=== PATIENT | female | born 1995 | race African-American/Black ===

== ENCOUNTER 2019-03-05 13:36 | Emergency (ER) | payer MEDICAID ==
[~2019-03-05] VITALS: Ht 152.4 cm; Wt 108.0 kg
[2019-03-05 13:57] VITALS: BP 128/50
== END 2019-03-05 20:18 | disposition left against medical advice (07) ==
LOC: ER 13:36
DX: O26.892 Other specified pregnancy related conditions, second trimester (principal); Z3A.19 19 weeks gestation of pregnancy; Z53.21 Procedure and treatment not carried out due to patient leaving prior to being seen by health care provider

== ENCOUNTER 2020-07-15 13:08 | Emergency (ER) | payer MEDICAID ==
[~2020-07-15] VITALS: Ht 162.6 cm; Wt 107.5 kg
[2020-07-15] MEDS ORDERED: ACETAMINOPHEN 325MG TABLET PO ONE (13:45)
[2020-07-15] MEDS ORDERED: SODIUM CHLORIDE 0.9% 1,000 ML IV ONE (13:45)
[2020-07-15] MEDS ORDERED: ONDANSETRON HCL 4MG/2ML INJ IV ONE (14:15)
[2020-07-15 14:58] LABS: BASOPHILS % 0.3 % (0.0-2.0); EOSINOPHILS % 1.1 % (0.0-5.0); HEMATOCRIT. 32.5 % (36.0-48.0); HEMOGLOBIN. 10.3 g/dL (12.0-16.0); LYMPHOCYTES % 14.1 % (20.0-50.0); MEAN CORPUSCULAR HEMOGLOBIN 21.9 pg (28.0-32.0); MEAN CORPUSCULAR VOLUME 69.1 fL (81.0-99.0); MEAN PLATELET VOLUME 7.2 fl (7.4-10.4); MONOCYTES % 4.3 % (2.0-8.0); NEUTROPHILS % 80.2 % (40.0-76.0); PLATELET 398 x1000/uL (130-400); RED CELL DISTRIBUTION WIDTH 18.8 % (11.6-14.6)
[2020-07-15 15:02] LABS: CHLORIDE 110 mEq/L (98-107)
[2020-07-15 15:44] LABS: PLATELET ESTIMATE NORMAL
[2020-07-15 16:02] LABS: B-HCG QUANTITATIVE 20 mIU/mL (<3)
[2020-07-15] MEDS ORDERED: ACET-2708 MT (16:40)
[2020-07-15 16:49] VITALS: BP 105/45
== END 2020-07-15 17:05 | disposition home or self-care (01) ==
LOC: ER 13:08
DX: N99.820 Postprocedural hemorrhage of a genitourinary system organ or structure following a genitourinary system procedure (principal); D64.9 Anemia, unspecified; R03.0 Elevated blood-pressure reading, without diagnosis of hypertension; Z98.890 Other specified postprocedural states
CPT/HCPCS: 36415; 76801; 76817; 80053; 84702; 85025; 86850; 86900; 86901; 96374; 99284; J2405; J7030